=== PATIENT | female | born 1975 | race Asian ===

== ENCOUNTER 2018-06-28 00:53 | Emergency (ER) | payer OTHER ==
[~2018-06-28] VITALS: Ht 157.5 cm; Wt 52.2 kg
[2018-06-28 01:46] VITALS: BP 135/88
[2018-06-28] MEDS ORDERED: AUGMENTIN 875-1 EAC1 ORAL (02:13)
--- NOTE | 2018-06-28 02:13 | Emergency Room Report ---
History of Present Illness General Chief Complaint: Animal Bite Source: Patient Present Illness HPI Is a 42-year-old female with no past medical history. She presents with a dog bite to her lip. Onset tonight. She was sleeping in the bed with her dog at the foot of the bed. Suddenly the dog bit her on the lip. She does not remember in the dog was startled or she kicked or hit the dog. Dog shots up-to- date. No other altercation. Pain is 5 out of 10. No active bleeding. Allergies: Coded Allergies: No Known Allergies (Unverified , 06/28/18) Patient History Past Medical History: see triage record, old chart reviewed Past Surgical History: none Pertinent Family History: none Social History: Denies: smoking Now: No Immunizations: other Reviewed Nursing Documentation: PMH: Agreed; PSxH: Agreed Nursing Documentation-PMH Past Medical History: No Stated History Review of Systems Eye: Denies: eye pain, blurred vision ENT: Denies: ear pain, nose congestion, throat swelling Respiratory: Denies: cough, shortness of breath Cardiovascular: Denies: chest pain, palpitations Gastrointestinal: Denies: abdominal pain, diarrhea, nausea, vomiting Musculoskeletal: Denies: back pain, joint pain Skin: Denies: rash Neurological: Denies: headache, numbness Endocrine: Denies: increased thirst, increased urine Hematologic/Lymphatic: Denies: easy bruising All Other Systems: negative except mentioned in HPI Physical Exam Vital Signs Date Time Temp Pulse Resp B/P (MAP) Pulse Ox O2 Delivery O2 Flow Rate FiO2 06/28/18 00:59 98.0 80 16 140/90 98 Room Air 98.1 vitals normal Sp02 EP Interpretation: reviewed, normal General Appearance: well appearing, no apparent distress, alert Head: normocephalic, atraumatic Eyes: bilateral eye PERRL, bilateral eye EOMI ENT: hearing grossly normal, normal pharynx, other - She has a 3 mm laceration to the right upper lip just above the angle of the lip. She has a on motion laceration of 2 cm involving the right lower lip and right upper lip where it meets. No foreign body. Neck: full range of motion, supple, no meningismus Respiratory: chest non-tender, lungs clear, normal breath sounds Cardiovascular #1: regular rate, rhythm, no murmur Gastrointestinal: normal bowel sounds, non tender, no mass, no organomegaly, no bruit, non-distended Musculoskeletal: back normal, gait/station normal, normal range of motion Psychiatric: mood/affect normal Skin: warm/dry Procedures Laceration/Wound Repair Laceration/Wound Repair : Consent: Verbal Wound Location: face Wound's Depth, Shape: into muscle, irregular, flap, stellate, contused tissue Wound Length (cm): 3 Wound Explored: clean Irrigated w/ Saline (ccs): 500 Betadine Prep?: Yes Anesthesia: 1% Lidocaine Volume Anesthetic (ccs): 2 Wound Repaired With: sutures Suture Size/Type: 6:0, proline Number of Sutures: 9 Layer Closure?: Yes Deep Layer Suture Size/Type: 6:0, chromic Number Deep Layer Sutures: 2 Patient Tolerated: Well Complications: None Medical Decision Making Diagnostic Impression: Primary Impression: Lip laceration Qualified Codes: S01.511A - Laceration without foreign body of lip, initial encounter Additional Impression: Dog bite Qualified Codes: W54.0XXA - Bitten by dog, initial encounter ER Course Patient with a complicated lip laceration. her dog shots are up-to-date. It's involving the angle of her lip. It came together nicely. I place a total of 11 sutures. Not on the outside into subcutaneously. No foreign body. Not through and through. Last Vital Signs Date Time Temp Pulse Resp B/P (MAP) Pulse Ox O2 Delivery O2 Flow Rate FiO2 06/28/18 01:46 97.9 77 16 135/88 98 Room Air 97.9 Status: improved Disposition: HOME, SELF-CARE Condition: Stable Scripts Amoxicillin/Potassium Clav 875-125* (AUGMENTIN 875-125 TABLET*) 1 Each Tablet 1 TAB ORAL TWICE A DAY, #14 TAB Prov: Carlos Monique MD 06/28/18 Referrals: NOT CHOSEN [facility]/,REFERRING (PCP) Additional Instructions: follow-up your doctor or return here in 5-7 days for suture removal. Did not open the mouth fully. Return if symptom worsen. Carlos Monique MD Jun 28, 2018 02:13
[2018-06-28 02:23] VITALS: BP 135/88
== END 2018-06-28 02:25 | disposition home or self-care (01) ==
LOC: EMR 01:18
DX: S01.511A Laceration without foreign body of lip, initial encounter (principal); W54.0XXA Bitten by dog, initial encounter; Y92.003 Bedroom of unspecified non-institutional (private) residence as the place of occurrence of the external cause
CPT/HCPCS: 99283